=== PATIENT | female | born 2000 | race Caucasian/White ===

== ENCOUNTER 2023-01-19 19:25 | Emergency (ER) | payer MEDICAID, SELFPAY ==
[2023-01-19 19:27] VITALS: BP 141/90; PULSE 109; RESP 18; TEMP 36.7; O2SAT 99; BMI 57.1
--- NOTE | 2023-01-19 19:52 | EKG12_ITS ---
Test Reason : Blood Pressure : / mmHG Vent. Rate : 091 BPM Atrial Rate : 091 BPM P-R Int : 176 ms QRS Dur : 076 ms QT Int : 334 ms P-R-T Axes : 061 050 039 degrees QTc Int : 410 ms Sinus rhythm with marked sinus arrhythmia Otherwise normal ECG Confirmed by CAROL HERNANDEZ, BOBBY ([id number]), photographic editor EDNA MEDLEY ([id number]) on 01/21/2023 11:23:40 AM Referred By: Confirmed By:BOBBY MEDINA MD
--- NOTE | 2023-01-19 19:53 | EX.ED.VIS.PS ---
HPI HPI - Psych History of Present Illness Chief Complaint: Suicidal Narrative Narrative: 22-year-old female has past medical history of cutting behavior, hypothyroidism, presents after reported suicidal gesture. She states that she took 72 tablets of ibuprofen and 6 melatonin tablets a few hours ago. 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 They ended up telling her parents that she had ingested something. She states that it is not over anything particular but she has been feeling more depressed with interruption of her sleep habits and decreased appetite. She states that she has never tried to commit suicide in the past, and has never been hospitalized for psychiatric reasons. She does not currently take any medications for depression. She states she is slightly nauseated and is having abdominal cramping but denies any other symptoms. [facility] Medical History Hypothyroidism Home Medications levothyroxine 50 mcg tablet 50 mcg PO DAILY 01/19/23 [History Last Taken Unknown] Allergy/AdvReac Type Severity Reaction Status Date / Time No Known Allergies Allergy Verified 01/19/23 19:34 Surgical History no surgical history Social History Smoking Status: Never smoker ROS ROS ED ROS Narrative Constitutional: No fever, no chills. HEENT: No sore throat. No neck pain. No loss of vision. No rhinorrhea. Cardiovascular: No chest pain. No palpitations. No pedal edema. Respiratory: No cough, no shortness of breath. Abdominal: No abdominal pain. No nausea. No vomiting. Genitourinary: No dysuria. No hematuria. Musculoskeletal: No myalgias. No arthralgias. Neurologic: No headaches. No dizziness. No lightheadedness. Skin: No rash. No change in color. Psychiatric: Positive depression. No anxiety. Suicidal gesture by ingesting pills. EXAM Physical Exam Narrative Exam Narrative: Afebrile. Vital signs noted. HEENT: Normocephalic. Atraumatic. PERRL, EOMI. Neck soft and supple. No point tenderness or step off. Cardiovascular: Regular rate and rhythm. No murmurs, rubs, or gallops appreciated. Respiratory: No tachypnea. Lungs clear to auscultation bilaterally. Gastrointestinal: Abdomen soft, nontender, with normoactive bowel sounds. No rebound or guarding. Neurological: Awake. Alert. Nonfocal, nonlateralizing. Skin: No rash. Normal color. No pallor. Musculoskeletal: No pedal edema. Full range of motion extremities. Psychiatric: Positive depression. Acts drowsy on examination. Const Vital Signs: 01/19/23 19:27 01/19/23 20:25 Temperature 98.0 F Temperature Source Temporal Pulse Rate 109 H Respiratory Rate 18 18 Blood Pressure 141/90 H Blood Pressure Mean 107 Pulse Ox 99 Oxygen Delivery Method Room Air MDM MDM MDM Narrative Medical decision making narrative: Given the patient's reported suicidal gesture, comprehensive work-up was pursued for medical screening. I will order a salicylate and Tylenol level. I am unsure as to if she has actually taken 72 tablets of ibuprofen but CMP will be obtained. I do feel that she will require evaluation by crisis. I reviewed her current laboratory work and she has white count slightly elevated 11.2 which I think is nonspecific, normal hemoglobin of 12.9, hematocrit 44.9, platelet count normal at 252. Chloride is slightly elevated at 109 but no evidence of dehydration with a normal sodium of 139 and potassium normal at 3.8. BUN and creatinine are normal. Serum is negative. Urine for drugs of abuse and alcohol level along with salicylate level and acetaminophen level are currently pending. At this point in time, she will be signed out to the oncoming physician, Dr. Joel Tubbs, to continue medical clearance and have crisis evaluate the patient for possible placement given her suicidal gesture. Disposition is pending. Patient is in stable condition. Upon repeat examination, she is resting comfortably and easily awakened. History & Record Review Discussion w/independent historian: Patient and Family Additional record(s) reviewed:: Prior ED visit (No prior visit except for 2013) Lab Data Attestation: I reviewed the patient's lab results. Labs: Laboratory Results - last 24 hr 01/19/23 01/19/23 01/19/23 20:45 20:45 20:45 WBC 11.2 H RBC 5.29 Hgb 12.9 Hct 44.9 MCV 84.9 MCH 24.4 L MCHC 28.7 L RDW Std Deviation 45.5 H RDW Coeff of Brad 14.7 H Plt Count 252 MPV 9.7 Immature Gran % (Auto) 0.300 Neut % (Auto) 81.3 H Lymph % (Auto) 10.3 L [place] % (Auto) 7.3 Eos % (Auto) 0.4 Baso % (Auto) 0.4 Absolute Neuts (auto) 9.2 H Absolute Lymphs (auto) 1.16 Nucleated RBC % 0.2 Sodium 139 Potassium 3.8 Chloride 109 H Carbon Dioxide 24.0 Anion Gap 6 BUN 15 Creatinine 0.76 Estim Creat Clear Calc 96.86 Est GFR (MDRD) Af Amer 122 Est GFR (MDRD) Non-Af 101 BUN/Creatinine Ratio 19.7 Glucose 95 Calcium 9.0 Total Bilirubin 0.50 AST 21 ALT 28 Alkaline Phosphatase 61 Total Protein 6.8 Albumin 3.2 Globulin 3.6 Albumin/Globulin Ratio 0.9 Serum , Qual Ur Drug Screen Comment 01/19/23 20:45 WBC RBC Hgb Hct MCV MCH MCHC RDW Std Deviation RDW Coeff of Brad Plt Count MPV Immature Gran % (Auto) Neut % (Auto) Lymph % (Auto) [place] % (Auto) Eos % (Auto) Baso % (Auto) Absolute Neuts (auto) Absolute Lymphs (auto) Nucleated RBC % Sodium Potassium Chloride Carbon Dioxide Anion Gap BUN Creatinine Estim Creat Clear Calc Est GFR (MDRD) Af Amer Est GFR (MDRD) Non-Af BUN/Creatinine Ratio Glucose Calcium Total Bilirubin AST ALT Alkaline Phosphatase Total Protein Albumin Globulin Albumin/Globulin Ratio Serum , Qual NEGATIVE Ur Drug Screen Comment Discharge Plan Triage Chief Complaint: Suicidal ED Provider: Damien Barrientos Dx/Rx/DC Orders Prescriptions: No Action levothyroxine 50 mcg tablet 50 mcg PO DAILY Label Comments: TAKE 1 TABLET BY MOUTH EVERY DAY Primary Care Provider: Debbie Nuno Referrals: Debbie Nuno DO [Primary Care Provider] -
[2023-01-19 20:25] VITALS: RESP 18
[2023-01-19 21:00] VITALS: RESP 16
[2023-01-19 21:03] LABS: Absolute Lymphocyte Count 1.16 X10^3/uL (0.83-4.51); Absolute Neutrophil Count 9.2 X10^3/uL (2.0-7.7); Basophil# 0.04 X10^3/uL; Basophil% 0.4 % (0-1); Eosinophil# 0.04 X10^3/uL; Eosinophils% 0.4 % (0-5); Hematocrit 44.9 % (37-47); Hemoglobin 12.9 g/dL (12.0-15.0); Lymphocyte # 1.16 X10^3/ul (0.83-4.51); Lymphocyte % 10.3 % (19-41); Mean Corp Hgb Conc 28.7 g/dL (32-36); Mean Corpuscular Hgb 24.4 pg (27.0-32.0); Mean Corpuscular Volume 84.9 fL (81-99); Mean Platelet Vol. 9.7 fl (6.2-12.0); Monocyte# 0.82 X10^3/uL; Monocyte% 7.3 % (0-10); NRBC Flagged by Analyzer 0.2 % (0-5); Neutrophil # 9.15 X10^3/uL (2.7-7.7); Neutrophil % 81.3 % (47-70); Platelet Count 252 K/mm3 (150-450); RBC Distribution Width CV 14.7 % (11.6-14.6); RBC Distribution Width SD 45.5 fl (35.1-43.9); Red Blood Count 5.29 M/mm3 (4.2-5.4); White Blood Count 11.2 K/mm3 (4.4-11.0)
[2023-01-19 21:17] LABS: Pregnancy, Serum, hCG Quali. NEGATIVE Negative (0-9 Nonpreg)
[2023-01-19 21:18] LABS: Internal QC Validated? YES +Cl - CLEAR BKGD
[2023-01-19 21:22] LABS: ALB/GLOB Ratio 0.9 RATIO (0.9-2.4); AST(SGOT) 21 U/L (15-37); Alanine Aminotransfer ALT/SGPT 28 U/L (13-56); Albumin, Serum 3.2 g/dL (3.2-5.0); Alkaline Phosphatase 61 U/L (45-117); Anion Gap 6 (5-15); BUN 15 mg/dL (7-18); BUN/Creat Ratio 19.7 RATIO (10-20); Chloride 109 mmol/L (98-107); Creatinine, Serum 0.76 mg/dL (0.55-1.02); EST Glomerular Filtration Rate 101 mL/min (>60); Est Glom Filt Rate - Afr Amer 122 mL/min (>60); Estimated Creatinine Clearance 96.86 ml/min; Globulin 3.6 g/dL (2.2-4.2); Glucose 95 mg/dL (74-106); Potassium 3.8 mmol/L (3.5-5.1); Protein, Total 6.8 g/dL (6.4-8.2); Sodium Level 139 mmol/L (136-145)
[2023-01-19 22:00] VITALS: RESP 16
[2023-01-19 22:09] LABS: Acetaminophen (Tylenol) Level < 2.0 ug/mL (10.0-30.0); Alcohol, Blood (Medical)-Serum < 3.0 mg/dL; Amphetamine Urine VISTA NEGATIVE (<1000 ng/mL); Barbiturate Urine VISTA NEGATIVE (< 200 ng/mL); Benzodiazepine Urine VISTA NEGATIVE (< 200 ng/mL); Cocaine Urine VISTA NEGATIVE (< 300 ng/mL); Ecstacy Urine VISTA NEGATIVE (< 500 ng/mL); Methadone Urine VISTA NEGATIVE (< 300 ng/mL); PCP Urine VISTA NEGATIVE (< 25 ng/mL); Salicylate < 1.7 mg/dL (2.8-20.0); THC Urine VISTA NEGATIVE (< 50 ng/mL); Vista UDS pH Range 6
[2023-01-19 23:00] VITALS: RESP 16
--- NOTE | 2023-01-19 23:50 | NURSING ---
GIFTY FROM [facility] CALLED WITH AN UPDATE THAT SHE REFERRED THE PT TO [facility].
[2023-01-20] VITALS: RESP 16
--- NOTE | 2023-01-20 00:39 | NURSING ---
CRISIS ACCEPTANCE TO [facility]- [facility]LEG[facility] - [facility]- RN TO RN--[phone] OPTION 1
--- NOTE | 2023-01-20 00:42 | NURSING ---
CALLED PHYSICIANS TO SET UP TRANSPORT TO [facility] -- [id number] ETA
[2023-01-20 01:00] VITALS: RESP 16
[2023-01-20 02:00] VITALS: RESP 16
[2023-01-20 04:10] VITALS: BP 138/92; PULSE 91; RESP 18; TEMP 36.5; O2SAT 98
[2023-01-20 05:00] VITALS: RESP 16
--- NOTE | 2023-01-20 05:31 | NURSING ---
attempted to call report to [facility] unit, admissions asked for our number and will have the nurse call us.
--- NOTE | 2023-01-20 05:52 | NURSING ---
spoke with Brandy from [facility], report given. Transport to be here @ [phone]
== END 2023-01-20 06:36 ==
PROVIDERS: Emergency Provider Emergency Medicine; PCP Family Medicine; Visit Provider Emergency Medicine
DX: R45.851 Suicidal ideations (principal); E03.9 Hypothyroidism, unspecified; Z79.899 Other long term (current) drug therapy
CPT/HCPCS: 36415; 80053; 80307; 80329; 82077; 84703; 85025; 87811; 93005; 99285; G0480